=== PATIENT | female | born 1940 | race African-American/Black ===

== ENCOUNTER 2021-08-04 15:44 | Inpatient (IN) ==
[2021-08-04 16:48] LABS: Basophils % 0.2 % (0.0-0.8); Eosinophils % 0.6 % (0.00-10.9); Hematocrit 20.5 VOL% (35.7-47.0); Immature Granulocytes % 0.8 %; Immature Granulocytes Absolute 0.04 #; Lymphocytes # 1.1 10*3/uL (1.4-4.0); Lymphocytes % 22.2 % (21.3-54.2); Mean Corpuscular HGB Conc 26.8 GM/DL (32-36); Mean Corpuscular Volume 71.2 FL (87-102); Mean Platelet Volume 10.5 FL (9.6-12.0); Monocytes % 7.2 % (1.7-12.7); NRBC # 0.33 10*3/uL; Platelet Count 346 T/CUMM (130-400); Red Blood Count 2.88 MC/CUMM (3.8-5.5); Red Cell Distribution Width 23.1 % (9.3-17.3); White Blood Count 5.1 T/CUMM (4-12)
[2021-08-04 16:54] LABS: Hemoglobin 5.5 GM/DL (12.0-16.0); INR 1.2; PT Patient Result 13.3 SECS (10.5-12.0); Partial Thromboplastin Time 24.4 SECS (23.8-32.1)
[2021-08-04 17:11] LABS: Alanine Aminotransferase 27 U/L (13-56); Albumin 2.8 G/DL (3.4-5.0); Alkaline Phosphatase 112 U/L (45-117); Aspartate Amino Transferase 30 U/L (0-37); Bilirubin,Total < 0.39 MG/DL (0.20-1.00); Blood Urea Nitrogen 14 MG/DL (7-18); Calcium 8.5 MG/DL (8.5-10.1); Carbon Dioxide 30 MMOL/L (21-32); Estimated Glom Filtration Rate 60 ML/MIN; Glucose 123 MG/DL (74-106); Potassium 3.3 MMOL/L (3.5-5.1); Sodium 143 MMOL/L (136-145); Total Protein 7.6 G/DL (6.4-8.2)
[2021-08-04 18:00] LABS: Hemoglobin 5.1 GM/DL (12.0-16.0)
[2021-08-04] MEDS ORDERED: SODIUM CHLORIDE 0.9% 1,000 ML IV PRN (18:02)
[2021-08-04] MEDS ORDERED: DEXTROSE 50% 25 GM/50 ML VIAL IV PRN (18:41)
[2021-08-04] MEDS ORDERED: MAGNESIUM SULF RIDER 2 GM/50 ML PREMIX IV PRN (18:41)
[2021-08-04] MEDS ORDERED: MAGNESIUM SULF RIDER 4 GM/100 ML PREMIX IV PRN (18:41)
[2021-08-04] MEDS ORDERED: GLUCAGON 1 MG VIAL IM PRN (18:41)
[2021-08-04] MEDS ORDERED: ONDANSETRON 4 MG/2 ML VIAL IV PRN (18:41)
[2021-08-04] MEDS ORDERED: FUROSEMIDE 40 MG/4 ML VIAL IV ONE (19:00)
[2021-08-04] MEDS: ALBUTEROL/IPRATROPIUM 3 ML NEB RESP TX SCH (19:26)
[2021-08-04] MEDS: POTASSIUM CHLORIDE RIDER 10 MEQ/100 ML PREMIX IV PRN (20:37)
[2021-08-04] MEDS: PANTOPRAZOLE INJ 200 MG in SODIUM CHLORIDE 0.9% 250 ML IV SCH (22:02)
[2021-08-04] MEDS: hydrALAZINE 20 MG/1 ML VIAL IV PRN (22:49)
[2021-08-04] MEDS ORDERED: LABETALOL 20 MG/4 ML SYRINGE IV PRN (23:50)
[2021-08-05] MEDS: ALBUTEROL/IPRATROPIUM 3 ML NEB RESP TX SCH ×4 (00:11→20:15)
[2021-08-05] MEDS: POTASSIUM CHLORIDE RIDER 10 MEQ/100 ML PREMIX IV PRN ×3 (00:45→04:36)
[2021-08-05 01:03] LABS: Hematocrit 26.1 VOL% (35.7-47.0); Hemoglobin 7.6 GM/DL (12.0-16.0)
[2021-08-05 05:08] LABS: Basophils % 0.2 % (0.0-0.8); Eosinophils % 0.3 % (0.00-10.9); Hematocrit 24.8 VOL% (35.7-47.0); Hemoglobin 7.2 GM/DL (12.0-16.0); Immature Granulocytes Absolute 0.06 #; Lymphocytes % 17.1 % (21.3-54.2); Mean Corpuscular Volume 72.1 FL (87-102); Mean Platelet Volume 10.4 FL (9.6-12.0); Monocytes % 6.6 % (1.7-12.7); NRBC # 0.21 10*3/uL; Neutrophils % 74.8 % (38.7-73.9); Platelet Count 327 T/CUMM (130-400); Red Blood Count 3.44 MC/CUMM (3.8-5.5)
[2021-08-05 05:24] LABS: Calcium 8.7 MG/DL (8.5-10.1); Osmolality,Calculated 281.3 MOS/KG (273-304); Potassium 3.3 MMOL/L (3.5-5.1)
[2021-08-05 06:56] LABS: Hematocrit 24.8 VOL% (35.7-47.0); Hemoglobin 7.1 GM/DL (12.0-16.0)
[2021-08-05 07:07] LABS: INR 1.4; PT Patient Result 15.3 SECS (10.5-12.0)
[2021-08-05] MEDS ORDERED: POTASSIUM CHLORIDE RIDER 10 MEQ/100 ML PREMIX IV ONE (07:57)
[2021-08-05] MEDS: FUROSEMIDE 40 MG/4 ML VIAL IV SCH ×2 (08:32→16:58)
[2021-08-05 10:20] LABS: Albumin 2.8 G/DL (3.4-5.0); Bilirubin,Direct 0.12 MG/DL (0.0-0.20); Bilirubin,Indirect 0.3 MG/DL (0.0-1.0); Bilirubin,Total 0.4 MG/DL (0.20-1.00); Total Protein 7.6 G/DL (6.4-8.2)
[2021-08-05 10:27] LABS: Risk Ratio 2.32; VLDL Cholesterol 11.8 MG/DL
[2021-08-05 14:51] LABS: Hematocrit 25.5 VOL% (35.7-47.0); Hemoglobin 7.3 GM/DL (12.0-16.0)
[2021-08-05] MEDS ORDERED: SODIUM CHLORIDE 0.9% 1,000 ML IV PRN (16:10)
[2021-08-05] MEDS ORDERED: ZIPRASIDONE 20 MG/1 ML VIAL IM ONE (16:37)
[2021-08-05 18:38] LABS: % Iron Saturation 3.8 % (18-50)
[2021-08-05] MEDS ORDERED: OLANZapine 10 MG VIAL IM ONE (20:32)
[2021-08-05] MEDS ORDERED: METOPROLOL TARTRATE 25 MG TABLET PO ONE (22:17)
[2021-08-05] MEDS: PANTOPRAZOLE INJ 200 MG in SODIUM CHLORIDE 0.9% 250 ML IV SCH (22:26)
[2021-08-06] MEDS: ALBUTEROL/IPRATROPIUM 3 ML NEB RESP TX SCH ×4 (00:30→19:20)
[2021-08-06 00:33] LABS: Hematocrit 28.2 VOL% (35.7-47.0); Hemoglobin 8.3 GM/DL (12.0-16.0)
[2021-08-06] MEDS ORDERED: LORazepam 2 MG/1 ML VIAL IV ONE ×2 (03:05→09:20)
[2021-08-06] MEDS: hydrALAZINE 20 MG/1 ML VIAL IV PRN ×2 (04:11→12:21)
[2021-08-06] MEDS ORDERED: HALOPERIDOL 5 MG/ML AMP IM ONE (05:32)
[2021-08-06] MEDS ORDERED: SODIUM CHLORIDE 0.9% 500 ML IV ONE (05:32)
[2021-08-06] MEDS ORDERED: SODIUM CHLORIDE 0.9% 1,000 ML IV SCH (06:00)
[2021-08-06] MEDS ORDERED: FUROSEMIDE 40 MG/4 ML VIAL IV ONE (07:11)
[2021-08-06 07:31] LABS: Basophils % 0.2 % (0.0-0.8); Eosinophils % 0.6 % (0.00-10.9); Hematocrit 27.3 VOL% (35.7-47.0); Immature Granulocytes % 1.6 %; Lymphocytes # 0.7 10*3/uL (1.4-4.0); Lymphocytes % 10.4 % (21.3-54.2); Mean Corpuscular HGB Conc 29.3 GM/DL (32-36); Mean Corpuscular Volume 73.8 FL (87-102); Mean Platelet Volume 9.8 FL (9.6-12.0); Monocytes % 6.4 % (1.7-12.7); Neutrophils % 80.8 % (38.7-73.9); Platelet Count 285 T/CUMM (130-400); Red Cell Distribution Width 24.1 % (9.3-17.3); White Blood Count 6.4 T/CUMM (4-12)
[2021-08-06 07:40] LABS: INR 1.5; PT Patient Result 16.6 SECS (10.5-12.0)
[2021-08-06 07:48] LABS: Calcium 8.6 MG/DL (8.5-10.1); Osmolality,Calculated 289.7 MOS/KG (273-304); Potassium 3.1 MMOL/L (3.5-5.1)
[2021-08-06] MEDS ORDERED: POTASSIUM CHLORIDE 20 MEQ TABLET PO PRN (08:18)
[2021-08-06] MEDS: PIPERACILLIN/TAZOBACTAM 3,375 MG in SODIUM CHLORIDE 0.9% 100 ML IV SCH ×3 (08:42→23:08)
[2021-08-06] MEDS: FUROSEMIDE 40 MG/4 ML VIAL IV SCH ×2 (09:37→16:32)
[2021-08-06] MEDS: LOSARTAN 50 MG TABLET PO SCH (09:58)
[2021-08-06] MEDS: METOPROLOL TARTRATE 25 MG TABLET PO SCH ×2 (12:07→22:15)
[2021-08-06] MEDS: FERRIC GLUCONATE COMPLEX 125 MG in SODIUM CHLORIDE 0.9% 100 ML IV SCH (12:23)
[2021-08-06 13:56] LABS: Hematocrit 30.9 VOL% (35.7-47.0)
[2021-08-06 18:35] LABS: Folate 10.69 NG/ML (5.38-24.0)
[2021-08-06 22:01] LABS: Hematocrit 26.7 VOL% (35.7-47.0); Hemoglobin 7.9 GM/DL (12.0-16.0)
[2021-08-06] MEDS: PANTOPRAZOLE INJ 200 MG in SODIUM CHLORIDE 0.9% 250 ML IV SCH (22:22)
[2021-08-07] MEDS: ALBUTEROL/IPRATROPIUM 3 ML NEB RESP TX SCH ×4 (01:15→19:30)
[2021-08-07 02:05] LABS: Basophils % 0.1 % (0.0-0.8); Eosinophils # 0.1 10*3/uL (0.0-0.87); Hematocrit 27.7 VOL% (35.7-47.0); Hemoglobin 8.1 GM/DL (12.0-16.0); Immature Granulocytes % 0.7 %; Immature Granulocytes Absolute 0.05 #; Lymphocytes # 1.2 10*3/uL (1.4-4.0); Lymphocytes % 17.9 % (21.3-54.2); Mean Corpuscular HGB Conc 29.2 GM/DL (32-36); Mean Corpuscular Volume 74.9 FL (87-102); Mean Platelet Volume 10.4 FL (9.6-12.0); NRBC # 0.28 10*3/uL; Neutrophils % 71.3 % (38.7-73.9); Platelet Count 312 T/CUMM (130-400); Red Cell Distribution Width 24.9 % (9.3-17.3); White Blood Count 6.9 T/CUMM (4-12)
[2021-08-07 02:20] LABS: Calcium 8.3 MG/DL (8.5-10.1); Osmolality,Calculated 288.1 MOS/KG (273-304); Potassium 3.4 MMOL/L (3.5-5.1)
[2021-08-07] MEDS: PIPERACILLIN/TAZOBACTAM 3,375 MG in SODIUM CHLORIDE 0.9% 100 ML IV SCH ×3 (05:16→22:51)
[2021-08-07 05:26] LABS: INR 1.4; PT Patient Result 15.1 SECS (10.5-12.0)
[2021-08-07] MEDS: LOSARTAN 50 MG TABLET PO SCH (10:04)
[2021-08-07] MEDS: METOPROLOL TARTRATE 25 MG TABLET PO SCH ×2 (10:05→20:46)
[2021-08-07] MEDS: LACTATED RINGERS 1,000 ML IV SCH (11:45)
[2021-08-07] MEDS ORDERED: propofoL 200 MG/20 ML VIAL IV ONE (13:59)
[2021-08-07] MEDS ORDERED: LIDOCAINE 2% 5 ML VIAL ONE (13:59)
[2021-08-07 15:57] LABS: AFP Tumor 31.4 NG/ML (0-8); Cancer Antigen 19-9 < 1.20 U/ML (0-35)
[2021-08-07] MEDS: FUROSEMIDE 40 MG/4 ML VIAL IV SCH ×2 (17:05→17:09)
[2021-08-07] MEDS: FERRIC GLUCONATE COMPLEX 125 MG in SODIUM CHLORIDE 0.9% 100 ML IV SCH (17:09)
[2021-08-07] MEDS: PANTOPRAZOLE INJ 200 MG in SODIUM CHLORIDE 0.9% 250 ML IV SCH (19:57)
[2021-08-08] MEDS: ALBUTEROL/IPRATROPIUM 3 ML NEB RESP TX SCH ×4 (01:45→20:50)
[2021-08-08 05:47] LABS: Bacteria,Urine Occasional /HPF (Few); Bilirubin,Urine Negative (Negative); Blood, Urine Small mg/dL (Negative); Glucose,Urine (UA) Negative (Negative); Hyaline Casts,Urine 6 /LPF (0-3); Ketones,Urine Negative (Negative); Mucus,Urine Occasional /LPF (Occasional); Nitrite,Urine Negative (Negative); Protein,Urine Negative; RBC,Urine 1 /HPF (0-4); Squamous Epithelial Cell,Urine Few /HPF (0-10); Urine Appearance CLEAR (Clear); Urine Color Yellow (Yellow); Urine Urobilinogen < 2.0 EU/DL (0.2-1.0)
[2021-08-08] MEDS: PIPERACILLIN/TAZOBACTAM 3,375 MG in SODIUM CHLORIDE 0.9% 100 ML IV SCH (06:07)
[2021-08-08 07:39] LABS: Calcium 8.2 MG/DL (8.5-10.1); Osmolality,Calculated 279.5 MOS/KG (273-304); Potassium 3.8 MMOL/L (3.5-5.1)
[2021-08-08 07:57] LABS: Basophils % 0.1 % (0.0-0.8); Eosinophils # 0.1 10*3/uL (0.0-0.87); Eosinophils % 1.7 % (0.00-10.9); Hematocrit 28.7 VOL% (35.7-47.0); Hemoglobin 8.1 GM/DL (12.0-16.0); Immature Granulocytes % 0.9 %; Immature Granulocytes Absolute 0.07 #; Lymphocytes # 1.5 10*3/uL (1.4-4.0); Mean Corpuscular HGB Conc 28.2 GM/DL (32-36); Mean Corpuscular Volume 78.8 FL (87-102); Mean Platelet Volume 9.9 FL (9.6-12.0); Monocytes % 10.1 % (1.7-12.7); NRBC # 0.73 10*3/uL; Neutrophils % 67.2 % (38.7-73.9); Platelet Count 297 T/CUMM (130-400); Red Blood Count 3.64 MC/CUMM (3.8-5.5); Red Cell Distribution Width 24.5 % (9.3-17.3); White Blood Count 7.6 T/CUMM (4-12)
[2021-08-08 08:27] LABS: Anisocytosis 2+; Eosinophils 3 % (0-10); Hypochromasia 1+; Lymphocytes 23 % (20-55); Macrocytosis 1+; Nucleated Red Blood Cells 18 (0-5); Platelet Estimate Normal; Segmented Neutrophils 66 % (50-85); Total Cells Counted 100
[2021-08-08 08:28] LABS: Acanthocytes Few; Ovalocytes Few; Poikilocytosis Slight; Polychromasia Slight; Tear Drop Cells Few
[2021-08-08] MEDS: LOSARTAN 50 MG TABLET PO SCH (08:59)
[2021-08-08] MEDS: METOPROLOL TARTRATE 25 MG TABLET PO SCH ×2 (08:59→21:08)
[2021-08-08] MEDS: FUROSEMIDE 40 MG/4 ML VIAL IV SCH ×3 (09:00→16:26)
[2021-08-08] MEDS: FERRIC GLUCONATE COMPLEX 125 MG in SODIUM CHLORIDE 0.9% 100 ML IV SCH (10:25)
[2021-08-08] MEDS: LACTATED RINGERS 1,000 ML IV SCH (10:25)
[2021-08-08] MEDS: hydrALAZINE 20 MG/1 ML VIAL IV PRN (16:22)
[2021-08-09] MEDS: ALBUTEROL/IPRATROPIUM 3 ML NEB RESP TX SCH ×2 (01:19→07:08)
[2021-08-09 06:15] LABS: Alanine Aminotransferase 33 U/L (13-56); Albumin 2.6 G/DL (3.4-5.0); Alkaline Phosphatase 126 U/L (45-117); Aspartate Amino Transferase 29 U/L (0-37); Bilirubin,Total < 0.39 MG/DL (0.20-1.00); Blood Urea Nitrogen 17 MG/DL (7-18); Calcium 8.5 MG/DL (8.5-10.1); Carbon Dioxide 35 MMOL/L (21-32); Estimated Glom Filtration Rate 58 ML/MIN; Glucose 126 MG/DL (74-106); Osmolality,Calculated 286.1 MOS/KG (273-304); Potassium 3.4 MMOL/L (3.5-5.1); Sodium 142 MMOL/L (136-145); Total Protein 7.8 G/DL (6.4-8.2)
[2021-08-09 06:19] LABS: Basophils % 0.4 % (0.0-0.8); Eosinophils # 0.1 10*3/uL (0.0-0.87); Eosinophils % 1.5 % (0.00-10.9); Hematocrit 32.7 VOL% (35.7-47.0); Immature Granulocytes % 1.3 %; Immature Granulocytes Absolute 0.09 #; Lymphocytes # 1.6 10*3/uL (1.4-4.0); Lymphocytes % 22.9 % (21.3-54.2); Mean Corpuscular HGB Conc 28.1 GM/DL (32-36); Mean Corpuscular Volume 78.4 FL (87-102); Mean Platelet Volume 10.8 FL (9.6-12.0); Monocytes % 10.5 % (1.7-12.7); NRBC # 1.12 10*3/uL; Neutrophils % 63.4 % (38.7-73.9); Platelet Count 342 T/CUMM (130-400); Red Blood Count 4.17 MC/CUMM (3.8-5.5); Red Cell Distribution Width 25.7 % (9.3-17.3); White Blood Count 6.9 T/CUMM (4-12)
[2021-08-09 06:24] LABS: Hemoglobin 9.2 GM/DL (12.0-16.0)
[2021-08-09 06:28] LABS: Eosinophils 4 % (0-10); Hypochromasia 1+; Lymphocytes 20 % (20-55); Microcytosis 1+; Nucleated Red Blood Cells 15 (0-5); Platelet Estimate Adequate; Segmented Neutrophils 70 % (50-85); Total Cells Counted 100
[2021-08-09] MEDS ORDERED: PANTOPRAZOLE 40 MG VIAL IV SCH (09:00)
[2021-08-09] MEDS ORDERED: POTASSIUM CHLORIDE 20 MEQ TABLET PO ONE (09:15)
[2021-08-09] MEDS: LOSARTAN 50 MG TABLET PO SCH (10:24)
[2021-08-09] MEDS: METOPROLOL TARTRATE 25 MG TABLET PO SCH (10:25)
[2021-08-09 12:01] VITALS: BP 141/57
[2021-08-09] MEDS: FUROSEMIDE 40 MG/4 ML VIAL IV SCH (12:47)
== END 2021-08-09 12:50 | disposition home or self-care (01) | DRG 813 ==
LOC: N.ED 15:44 → N.EDINP 18:43 → N.TELEN 08-05 13:44
PROVIDERS: ADMIT Internal Medicine; ATTEND Internal Medicine

== ENCOUNTER 2022-03-08 15:53 | Inpatient (IN) ==
[2022-03-08] MEDS ORDERED: SODIUM CHLORIDE 0.9% 1,000 ML IV STA (16:51)
[2022-03-08 17:16] LABS: Basophils % 0.1 % (0.0-0.8); Hematocrit 37.4 VOL% (35.7-47.0); Hemoglobin 11.8 GM/DL (12.0-16.0); Immature Granulocytes % 0.3 %; Immature Granulocytes Absolute 0.02 #; Lymphocytes # 2.7 10*3/uL (1.4-4.0); Lymphocytes % 38.9 % (21.3-54.2); Mean Corpuscular HGB Conc 31.6 GM/DL (32-36); Mean Corpuscular Volume 88.2 FL (87-102); Mean Platelet Volume 9.4 FL (9.6-12.0); Monocytes # 0.4 10*3/uL (0.11-0.8); Monocytes % 5.9 % (1.7-12.7); Neutrophils % 54.8 % (38.7-73.9); Platelet Count 312 T/CUMM (130-400); Red Blood Count 4.24 MC/CUMM (3.8-5.5)
[2022-03-08 17:28] LABS: PT Patient Result 11.1 SECS (10.5-12.0); Partial Thromboplastin Time 31.2 SECS (23.8-32.1)
[2022-03-08 17:50] LABS: Albumin 3.2 G/DL (3.4-5.0); Bilirubin,Total 0.4 MG/DL (0.20-1.00); Calcium 9.1 MG/DL (8.5-10.1); Osmolality,Calculated 268.2 MOS/KG (273-304); Potassium 3.6 MMOL/L (3.5-5.1); Thyroid Stimulating Hormone 0.364 uIU/ml (0.358-3.74); Total Protein 8.4 G/DL (6.4-8.2)
[2022-03-08 18:13] LABS: Prolactin 5.5 ng/mL (2.8-29.2)
[2022-03-08 18:18] LABS: Sedimentation Rate-Westergren 57 MM/HR (0-30)
[2022-03-08] MEDS ORDERED: hydrALAZINE 20 MG/1 ML VIAL IV STA (19:35)
[2022-03-08 19:55] LABS: Glucose,Urine (UA) Negative (Negative); Protein,Urine 30 mg/dL (Negative); Urine Appearance Slightly Cloudy (Clear); Urine Color Yellow (Yellow); Urine Specific Gravity >= 1.030 (1.001-1.035); Urine pH 6.5 (4.5-8.0)
[2022-03-08 19:56] LABS: Bilirubin,Urine Negative (Negative); Blood, Urine Trace mg/dL (Negative); Ketones,Urine Negative (Negative); Nitrite,Urine Negative (Negative); Urine Urobilinogen 0.2 eU/dL (<2.0)
[2022-03-08 20:12] LABS: RBC,Urine 0-3 /HPF (0-4)
[2022-03-08 20:13] LABS: Bacteria,Urine Few /HPF (Few); Hyaline Casts,Urine Occasional /LPF (0-3); Renal Epithelial Cells,Urine Few /HPF (<1); Squamous Epithelial Cell,Urine Moderate /HPF (0-10)
[2022-03-08 20:14] LABS: Mucus,Urine Few /LPF (Occasional)
[2022-03-08 20:25] LABS: Barbiturates Screen,Urine Negative (Negative); Benzodiazepines Screen,Urine Negative (Negative); Cannabinoid Screen,Urine Negative (Negative); Opiate Screen,Urine Negative (Negative); Phencyclidine Screen,Urine Negative (Negative)
[2022-03-08] MEDS ORDERED: MAGNESIUM SULF RIDER 2 GM/50 ML PREMIX IV STA (20:31)
[2022-03-08] MEDS ORDERED: DEXTROSE 10% 250 ML BAG IV PRN (21:47)
[2022-03-08] MEDS ORDERED: hydrALAZINE 20 MG/1 ML VIAL IV PRN (21:47)
[2022-03-08] MEDS ORDERED: GLUCAGON 1 MG VIAL IM PRN (21:47)
[2022-03-08] MEDS ORDERED: ONDANSETRON 4 MG/2 ML VIAL IV PRN (21:47)
[2022-03-08] MEDS ORDERED: ASPIRIN 300 MG SUPP RECTAL STA (21:47)
[2022-03-08] MEDS: ENOXAPARIN 40 MG/0.4 ML SYRINGE SUBCUT SCH (22:14)
[2022-03-08] MEDS: cefTRIAXone 1,000 MG in SODIUM CHLORIDE 0.9% 100 ML IV SCH (22:14)
[2022-03-08] MEDS: AZITHROMYCIN INJ 500 MG in SODIUM CHLORIDE 0.9% 250 ML IV SCH (22:50)
[2022-03-09] MEDS: ALBUTEROL/IPRATROPIUM 3 ML NEB RESP TX SCH ×4 (00:31→19:40)
[2022-03-09] MEDS ORDERED: METOPROLOL TARTRATE 5 MG/5 ML VIAL IV ONE (04:42)
[2022-03-09] MEDS ORDERED: ALBUTEROL 2.5 MG/3 ML NEB RESP TX PRN (04:49)
[2022-03-09 05:03] LABS: Basophils % 0.3 % (0.0-0.8); Eosinophils % 0.2 % (0.00-10.9); Hemoglobin 11.2 GM/DL (12.0-16.0); Immature Granulocytes % 0.2 %; Immature Granulocytes Absolute 0.01 #; Lymphocytes # 2.8 10*3/uL (1.4-4.0); Mean Corpuscular HGB Conc 31.1 GM/DL (32-36); Mean Corpuscular Volume 88.2 FL (87-102); Mean Platelet Volume 9.9 FL (9.6-12.0); Monocytes # 0.6 10*3/uL (0.11-0.8); Monocytes % 9.1 % (1.7-12.7); Neutrophils % 45.2 % (38.7-73.9); Platelet Count 320 T/CUMM (130-400); Red Blood Count 4.08 MC/CUMM (3.8-5.5); Red Cell Distribution Width 15.2 % (9.3-17.3); White Blood Count 6.2 T/CUMM (4-12)
[2022-03-09 05:22] LABS: Calcium 8.7 MG/DL (8.5-10.1); Osmolality,Calculated 272.8 MOS/KG (273-304); Potassium 3.3 MMOL/L (3.5-5.1); Risk Ratio 1.96; VLDL Cholesterol 12.2 MG/DL
[2022-03-09] MEDS: POTASSIUM CHLORIDE RIDER 10 MEQ/100 ML PREMIX IV SCH ×2 (05:35→07:35)
[2022-03-09] MEDS ORDERED: METOPROLOL TARTRATE 25 MG TABLET PO SCH (09:00)
[2022-03-09] MEDS ORDERED: LABETALOL 20 MG/4 ML SYRINGE IV ONE (11:32)
[2022-03-09] MEDS: ASPIRIN EC 81 MG TABLET PO SCH (12:02)
[2022-03-09] MEDS: CITALOPRAM 20 MG TABLET PO SCH (12:02)
[2022-03-09] MEDS: FUROSEMIDE 40 MG TABLET PO SCH (12:03)
[2022-03-09] MEDS: POTASSIUM CHLORIDE 20 MEQ TABLET PO SCH (12:03)
[2022-03-09] MEDS: LOSARTAN 50 MG TABLET PO SCH (12:03)
[2022-03-09] MEDS: METOPROLOL TARTRATE 25 MG TABLET PO SCH ×2 (12:04→21:13)
[2022-03-09] MEDS ORDERED: SIMVASTATIN 20 MG TABLET PO SCH (17:00)
[2022-03-09] MEDS ORDERED: MONTELUKAST 10 MG TABLET PO SCH (21:00)
[2022-03-09] MEDS: ENOXAPARIN 40 MG/0.4 ML SYRINGE SUBCUT SCH (21:13)
[2022-03-09] MEDS: cefTRIAXone 1,000 MG in SODIUM CHLORIDE 0.9% 100 ML IV SCH (21:14)
[2022-03-09] MEDS: AZITHROMYCIN INJ 500 MG in SODIUM CHLORIDE 0.9% 250 ML IV SCH (22:31)
[2022-03-10] MEDS ORDERED: ACETAMINOPHEN 325 MG TABLET PO PRN (01:10)
[2022-03-10 05:04] LABS: Basophils % 0.2 % (0.0-0.8); Eosinophils # 0.1 10*3/uL (0.0-0.87); Eosinophils % 1.3 % (0.00-10.9); Hematocrit 33.3 VOL% (35.7-47.0); Hemoglobin 10.2 GM/DL (12.0-16.0); Immature Granulocytes % 0.2 %; Immature Granulocytes Absolute 0.01 #; Lymphocytes # 2.4 10*3/uL (1.4-4.0); Lymphocytes % 51.6 % (21.3-54.2); Mean Corpuscular HGB Conc 30.6 GM/DL (32-36); Mean Corpuscular Volume 90.2 FL (87-102); Mean Platelet Volume 9.8 FL (9.6-12.0); Monocytes # 0.5 10*3/uL (0.11-0.8); Monocytes % 10.4 % (1.7-12.7); Neutrophils % 36.3 % (38.7-73.9); Platelet Count 272 T/CUMM (130-400); Red Blood Count 3.69 MC/CUMM (3.8-5.5); Red Cell Distribution Width 15.6 % (9.3-17.3); White Blood Count 4.7 T/CUMM (4-12)
[2022-03-10 05:19] LABS: Calcium 8.7 MG/DL (8.5-10.1); Osmolality,Calculated 278.5 MOS/KG (273-304); Potassium 3.6 MMOL/L (3.5-5.1)
[2022-03-10 05:42] LABS: Eosinophils 3 % (0-10); Lymphocytes 58 % (20-55); Platelet Estimate Adequate; Total Cells Counted 100
[2022-03-10] MEDS: ALBUTEROL/IPRATROPIUM 3 ML NEB RESP TX SCH ×3 (07:40→13:33)
[2022-03-10] MEDS: METOPROLOL TARTRATE 25 MG TABLET PO SCH (08:12)
[2022-03-10] MEDS: LOSARTAN 50 MG TABLET PO SCH (08:14)
[2022-03-10] MEDS: POTASSIUM CHLORIDE 20 MEQ TABLET PO SCH (08:15)
[2022-03-10] MEDS: CITALOPRAM 20 MG TABLET PO SCH (08:15)
[2022-03-10] MEDS: FUROSEMIDE 40 MG TABLET PO SCH (08:15)
[2022-03-10] MEDS: ASPIRIN EC 81 MG TABLET PO SCH (08:15)
[2022-03-10] MEDS ORDERED: MEMANTINE 5 MG TABLET PO SCH (10:00)
[2022-03-10 11:55] VITALS: BP 160/69
== END 2022-03-10 15:30 | disposition home health service (06) | DRG 193 ==
LOC: N.5E 15:53 → N.ED 15:53 → N.5E 22:36 → SUATTDRO 03-09 08:21
PROVIDERS: ADMIT Internal Medicine; ATTEND Internal Medicine